=== PATIENT | male | born 1940 | race Caucasian/White ===

== ENCOUNTER 2017-12-30 11:11 | Outpatient (CLI) | payer MEDICARE ==
[~2017-12-30 11:11] MED LIST: Gadobenate Dimeglumine 529 MG/1 ML (20ML VIAL) ONE
--- NOTE | 2017-12-30 15:44 | MRI ---
MRI PELVIS WITH AND WITHOUT CONTRAST: 12/30/17 HISTORY: Left buttock mass - R22.2, buttocks nodule. COMPARISON: Renal ultrasound 12/08/17. FINDINGS: At the region of interest marker, the subcutaneous fat is a relatively well defined 2.7 x 1.9 x 3.9 c m T1 and T2 hypointense mass abutting the coccyx and sacrum on the left as well as involvement of the left gluteus kindra muscle and abutting the left sacrospinous ligament. Along the caudal region the re is an area of T1 hyperintense focus peripherally measuring 7 x 6 mm with peripheral T1 and T2 hypo intense focus suggesting an area of ossification. There is a small focus of internal T2 hyperintensit y. There is very thin peripheral enhancement postcontrast without internal enhancement. This abuts th e sacrum and coccyx without invasion. There is a partial tear of the left adductor longus muscle and rectus abdominis aponeurosis with flui d signal within the pubic symphysis. There is no fracture. No abnormal areas of T1 signal replacement of the osseous pelvis. Prior prostatectomy. Suprapubic catheter is present with thickening of the urinary bladder wall. Mode rate diverticular disease of the sigmoid colon without active current inflammation. Small fat containing left sided direct inguinal hernia. 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 This T1 and T2 hypointe nse area has no internal enhancement with well defined 7 x 6 mm area of T1 signal hyperintensity with peripheral hypointensity suggesting corticated bone. Recommend followup CT of the pelvis in six janet hs is recommended to evaluate for peripheral calcifications. This may be post traumatic in nature. Sa rcoma is felt less likely. This mass abuts the left gluteus musculature, sacrum and coccyx as well as the left sacrospinous ligament without invasion. Myositis ossificans extending from the left gluteus kindra muscle is also a possibility. POS: [facility]
== END 2017-12-30 11:12 | disposition home or self-care (01) ==
LOC: MRI 11:11
PROVIDERS: ATTEND Internal Medicine
DX: R22.2 Localized swelling, mass and lump, trunk (principal); R93.41 Abnormal radiologic findings on diagnostic imaging of renal pelvis, ureter, or bladder
CPT/HCPCS: 72197; 82565; A9579

== ENCOUNTER 2018-01-14 11:39 | Emergency (ER) | payer MEDICARE ==
[2018-01-14 12:28] LABS: #Basophils 0.2 thou/uL (0.0-0.2); #Eosinphils 0.1 thou/uL (0.0-0.7); #Monocytes 0.8 thou/uL (0.11-0.59); #Neutrophils 10.1 thou/uL (1.40-6.50); %Basophils 1.6 % (0.0-1.0); %Eosinophils 0.7 % (0.0-10.0); %Lymphocytes 8.5 % (21.0-51.0); %Monocytes 6.2 % (0.0-10.0); Hemoglobin 12.3 g/dL (14.0-18.0); Mean Corpuscular HGB CONC 33.9 g/dL (32.0-36.0); Mean Corpuscular Hemoglobin 27.3 pg (27.0-31.0); Mean Corpuscular Volume 80.6 fl (80.0-94.0); Platelet Count 467 thou/uL (130-400); RBC Distribution Width 14.1 % (11.5-14.5); White Blood Cell (WBC) Count 12.1 thou/uL (4.8-10.8)
[2018-01-14 12:36] LABS: ALT (SGPT) 41 U/L (8-55); AST (SGOT) 43 U/L (5-34); Albumin 3.1 g/dL (3.4-4.8); Alkaline Phosphatase 110 U/L (40-150); Anion Gap 15 mmol/L (10-20); BUN (Urea Nitrogen) 35 mg/dL (8.4-25.7); Bilirubin, Total 0.8 mg/dL (0.2-1.2); CK (CPK) 37 U/L (30-200); Calc. Creatinine Clearance 0 mL/min (70-130); Calcium 9.3 mg/dL (7.8-10.44); Carbon Dioxide 23 mmol/L (23-31); Chloride 101 mmol/L (98-107); Estimated GFR-MDRD 31; Globulin 4.8 g/dL (2.4-3.5); Glucose 98 mg/dL (83-110); Potassium 4.4 mmol/L (3.5-5.1); Protein, Total 7.9 g/dL (5.8-8.1); Sodium 135 mmol/L (136-145)
[2018-01-14 12:39] LABS: CKMB 1.2 ng/mL (0-6.6); Troponin I Less than 0.010 ng/mL (< 0.028)
--- NOTE | 2018-01-14 12:59 | CT ---
CT BRAIN WITHOUT CONTRAST: Date: 01/14/18 HISTORY: Syncope. Dizziness. Fall. FINDINGS: Comparison made with exam of 12/13/12. 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 No evidence of acute infarct, hemorrhage, midl ine shift, or abnormal extra-axial fluid collections are seen. The ventricular size is appropriate an d the basilar cisterns are patent. The bony calvarium is intact. The visualized paranasal sinuses and mastoid air cells are well aerated. IMPRESSION: No CT evidence of acute intracranial process. POS: [facility]
--- NOTE | 2018-01-14 13:02 | RAD ---
PORTABLE CHEST 1 VIEW: Date: 01/14/18 Time: 1235 hours HISTORY: Syncope. FINDINGS/IMPRESSION: The heart size is borderline. The aorta is tortuous. There is mild prominence of the pulmonary vascul arity. No lobar consolidation, pneumothoraces, or large effusions are seen. POS: [facility]
--- NOTE | 2018-01-14 13:04 | CT ---
CT CERVICAL SPINE PERFORMED WITHOUT CONTRAST ENHANCEMENT: History: Neck pain status post fall. FINDINGS: The vertebral bodies are normal in height. There is disc narrowing at C5-6 and C6-7. Anterior osteoph ytic change is seen. Degenerative facet changes are noted. Facets do appear to be in normal alignment . There is no CT evidence of fracture. The lung apices are clear of any focal infiltrative process. C arotid bulb calcifications are noted. IMPRESSION: No CT evidence of fracture of the cervical spine. POS: [facility]
[2018-01-14 13:41] LABS: Bilirubin Negative (Negative); Blood, Urine Large (Negative); Clarity Cloudy (Clear); Glucose, Urine (Dipstick) Negative (Negative); Leukocyte Large (Negative); Nitrite Positive (Negative); Protein, Urine (Dipstick) 30 mg/dL (Neg-Trace); Urobilinogen 0.2 mg/dL (0.2-1.0)
[2018-01-14 13:50] LABS: Bacteria/HPF 2+ HPF (None Seen); Squamous Epithelial 0-3 HPF (0-3)
[2018-01-14] MEDS ORDERED: Aspirin 325 MG TAB ONE (14:57)
== END 2018-01-14 15:50 | disposition home or self-care (01) ==
LOC: SCSER 11:39
DX: R55 Syncope and collapse (principal); N39.0 Urinary tract infection, site not specified; E03.9 Hypothyroidism, unspecified; Z86.73 Personal history of transient ischemic attack (TIA), and cerebral infarction without residual deficits; E78.5 Hyperlipidemia, unspecified; I10 Essential (primary) hypertension; Z79.899 Other long term (current) drug therapy; Z79.82 Long term (current) use of aspirin
CPT/HCPCS: 70450; 71045; 72125; 80053; 81003; 81015; 82550; 82553; 83605; 84443; 84484; 85025; 87040; 87086; 93005; 96365; J1956